=== PATIENT | male | born 1995 | race Caucasian/White ===

== ENCOUNTER 2021-04-25 21:19 | Emergency (ER) | payer MEDICAID ==
[~2021-04-25] VITALS: Ht 180.3 cm; Wt 131.8 kg
[2021-04-25 21:20] VITALS: BP 116/70
[2021-04-25] MEDS ORDERED: LORazepam 1MG TABLET PO PRN (22:00)
--- NOTE | 2021-04-25 22:04 | NUR ---
Pt BIB EMS and law enforcement on L2K and in 4pt restraints. Officer reports that pt was tracking his wifes cell phone to the [facility] where he found her in a hotel room with another man. Pt then got into a dispute with the man he found his with, [facility] security involved who then called police. When police arrived on scene pt stated that he was going to take the officers gun and shoot himself. The officer and the pt then got into an altercation which led to 4pt restraints. Restraints removed on arrival, pt changed into gown independently, belongings placed in secure locker and labled, room secured, UA provided. MD ZOEY at bedside to discuss POC. Sitter in view of pt, PRAVEEN
--- NOTE | 2021-04-25 22:05 | NUR ---
Restraints removed per MD order
--- NOTE | 2021-04-25 22:19 | NUR ---
Pt was pacing in room, this RN asked pt if he would please sit down so she could give him antianxiety medication. Pt immediately ran into hallway and out back door by time clock and out of this hospital onto [facility]. Security contacted. [employer] called when pt was off premises. Pt has no belongings and is only in hospital gown. notified.
--- NOTE | 2021-04-26 08:03 | NUR ---
[employer] RECEIVABLE SPECIALIST: AT SOME POINT IN THE MID MORNING PT. HAD CALLED ED AND SPOKE WITH THIS RN. PT. STATED "I JUST WANTED TO CALL AND LET YOU GUYS KNOW THAT I AM SORRY I HAD TO RUN OUT OF THERE, I JUST COULDN'T SIT IN THAT ROOM AND THINK ABOUT ALL THE STUFF GOING ON ANYMORE. I WANT YOU TO KNOW THAT I AM WITH MY FRINEDS NOW AND I AM NOT GOING TO HURT MYSELF. I HAVE AN APPOINTMENT WITH MY PSYCHIATRIST IN THE MORNING TO HELP ME FIGURE THIS OUT." PT. WAS ASKING IF HE COULD RETURN TO ED TO GET HIS BELONGINGS THAT ARE SECURED IN LOCKER. LEGAL HOLD PROCESS EXPLAINED TO PT. PT. STATES "I WILL CHECK BACK TOMORROW AFTER I SPEAK WITH MY PSYCHIATIRIT."
== END 2021-04-25 23:27 | disposition left against medical advice (07) ==
LOC: ED 21:30
DX: R45.851 Suicidal ideations (principal); F32.9 Major depressive disorder, single episode, unspecified; Z87.891 Personal history of nicotine dependence; Y08.89XA Assault by other specified means, initial encounter; Y93.89 Activity, other specified; Y92.89 Other specified places as the place of occurrence of the external cause; Y99.8 Other external cause status
CPT/HCPCS: 99285

== ENCOUNTER 2021-04-27 05:51 | Emergency (ER) | payer MEDICAID ==
[~2021-04-27] VITALS: Ht 180.3 cm; Wt 129.1 kg
--- NOTE | 2021-04-27 06:10 | NUR ---
PT PRESENTS TO ER FOR ANXIETY, PT STATES HE HAS BEEN HAVING ANXIETY FOR THE LAST FEW DAYS THAT HAS BEEN GETTING WORSE
[2021-04-27 07:02] VITALS: BP 136/86
--- NOTE | 2021-04-27 07:07 | NUR ---
PT APPEARS TO BE MUCH MORE RELAXED AND NOT ANXIOUS AT TIME OF DISCHARGE, VSS, PT DISCHARGED WITH MEDICATION TO HELP TREAT HIS ANXIETY
== END 2021-04-27 07:18 | disposition home or self-care (01) ==
LOC: ED 07:00
DX: F43.0 Acute stress reaction (principal); F41.9 Anxiety disorder, unspecified; Z87.891 Personal history of nicotine dependence
CPT/HCPCS: 99283